=== PATIENT | female | born 1995 | race African-American/Black ===

== ENCOUNTER 2020-08-02 13:10 | Inpatient (IN) | payer OTHER ==
--- NOTE | 2020-08-02 16:41 | HP ---
Admitting History and Physical - Primary Care Physician PCP: Elmo NR - Admission Chief Complaint: sent for NST/BPP History of Present Illness: Had variable with possible late decel on NST at clinic History Source: Patient - Past Medical History ...: Yes ...: 3 ...Para: 0 - Past Surgical History Past Surgical History: Yes: None Physical Examination Vital Signs: Vital Signs Temperature 97.9 F 08/02/20 13:20 Pulse Rate 85 08/02/20 13:20 Respiratory Rate 18 08/02/20 13:20 Blood Pressure 102/62 08/02/20 13:20 O2 Sat by Pulse Oximetry (%)
[2020-08-02 16:46] VITALS: BMI 28.3
--- NOTE | 2020-08-02 16:48 | HP ---
Past Medical History - Primary Care Physician PCP:: Elmo NR - Admission Chief Complaint: Sent for NST BPP History of Present Illness: had variable and late deceleration on NST in clinic History Source: Patient - Past Medical History Pulmonary: Yes: Asthma ...: 3 ...Para: 0 ...Term: 0 ...: 0 ...Spon : 1 ...Induced : 1 ...Living Children: 0 ... Weeks Gestation by Dates: 39 ...EDC by Sono: 08/07/20 - Past Surgical History Past Surgical History: Yes: None Hx Myomectomy: No Hx Transabdominal Cerclage: No - Alcohol/Substance Use Hx Alcohol Use: No Physical Exam - Maternity Vital Signs: Vital Signs Temperature 97.9 F 08/02/20 13:20 Pulse Rate 85 08/02/20 13:20 Respiratory Rate 18 08/02/20 13:20 Blood Pressure 102/62 08/02/20 13:20 O2 Sat by Pulse Oximetry (%) - Abdominal Exam/OB Fundal Height: 39 Number of Fetuses: Single Presentation: Vertex Contractions: Yes Regularity: Irregular Monitor Mode: External - Vaginal Exam/OB Vaginal Bleeding: No Dilatation (cm): 0 Effacement (%): 0 Amniotic Membrane Status: Intact Presentation: Vertex/Position Station: -2 - Physical Exam Edema: No Hemorrhage Risk Assessment - Risk Factors Medium Risk Factors: Yes: None High Risk Factors: Yes: None Risk Score: 1 Risk Level: Medium Risk Assessment/Plan 25 yo P0020 at 39 weeks with suspicious NST. hx grade 3 placenta, pos GBS BPP 6/8 today (-2 for breathing) EFW 3218 monitor with subtle late/variable consented for IOL plan cervidil
[2020-08-02] MEDS ORDERED: DINOPROSTONE 10 MG VAGINAL SUPPOSITORY VG ONE (16:51)
[2020-08-02] MEDS ORDERED: ELECTROLYTE-148 SOLN 1,000 ML IV SCH (17:00)
[2020-08-02] MEDS ORDERED: ePHEDrine SULFATE 50 MG/1 ML AMPULE ONE (17:21)
[2020-08-02] MEDS ORDERED: morphine SULFATE/PF 0.5 MG/ML (2cc Syringe - QUVA) ONE (17:21)
[2020-08-02] MEDS ORDERED: OXYTOCIN 20 UNITS in 0.9% NS 20 UNIT/1,000 ML INFUS.BAG IV ONE (17:28)
--- NOTE | 2020-08-02 17:30 | PN ---
Progress Note (short form) - Note Progress Note: Prolonged spontaneous deceleration to 70 x four minutes Pt repositioned left lateral and give O2 by face mask. returned to baseline 150 with acceleration Was admitted for IOL due to suspicious NST Plan delivery for category 2 tracing and remote from delivery anesthesiologist and neonatology notified.
[2020-08-02] MEDS ORDERED: IBUPROFEN 600 MG TABLET (FP) PO PRN ×2 (17:34→18:52)
[2020-08-02] MEDS ORDERED: ONDANSETRON 4 MG/2 ML VIAL IVPUSH PRN (17:34)
[2020-08-02 17:37] LABS: BASO % 0.4 % (0-2.0); EOS % 1.1 % (0-4.5); HEMATOCRIT 36.1 % (32.4-45.2); HEMOGLOBIN 12.4 GM/dL (10.7-15.3); LYMPH % 20.7 % (8-40); MCH 30.3 pg (25.7-33.7); MCHC 34.4 g/dl (32.0-36.0); MEAN CELL VOLUME 88.1 fl (80-96); MEAN PLT VOLUME 9.2 fl (7.5-11.1); MONO % 9.3 % (3.8-10.2); NEUT % 68.5 % (42.8-82.8); PLATELET COUNT 177 K/MM3 (134-434); RDW 14.4 % (11.6-15.6)
[2020-08-02 17:45] LABS: INR 0.96 (0.83-1.09); PROTHROMBIN TIME (PATIENT) 11.3 SEC (9.7-13.0)
[2020-08-02 17:48] LABS: ACTIVATED PTT 29.2 SECONDS (25.2-36.5)
[2020-08-02 17:59] LABS: BLOOD UREA NITROGEN 5.7 mg/dL (7-18); CALCIUM 9.4 mg/dL (8.5-10.1); CREATININE 0.7 mg/dL (0.55-1.3); POTASSIUM 4.1 mmol/L (3.5-5.1)
--- NOTE | 2020-08-02 18:47 | PN ---
Progress Note (short form) - Note Progress Note: I assisted Dr. ALBA at c/section for the entirety of the case.
--- NOTE | 2020-08-02 18:49 | OP ---
Operative Note - Note: Operative Date: 08/02/20 Pre-Operative Diagnosis: 39 weeks, category 2 tracing, remote from delivery Operation: primary Findings: female apg 8-9 Post-Operative Diagnosis: Same as Pre-op Surgeon: Mireille Douglas Procurement Internship: Ryan Tabor Anesthesiologist/PATIENT SCHEDULER: Maurilio Elam Anesthesia: Spinal Specimens Removed: placenta, cord gas Estimated Blood Loss (mls): 500 Operative Report Dictated: Yes
[2020-08-02] MEDS ORDERED: oxyCODONE HCL 5 MG TABLET PO PRN (18:52)
[2020-08-02] MEDS ORDERED: METHYLERGONOVINE MALEATE 0.2 MG/1 ML AMP IM PRN (18:52)
[2020-08-02 18:55] LABS: CORD HCO3 22.4 mmHg (20-29); CORD pH 7.22 (7.14-7.44)
[2020-08-02] MEDS ORDERED: OXYTOCIN 20 UNITS in 0.9% NS 20 UNIT/1,000 ML INFUS.BAG IV SCH (19:00)
[2020-08-02] MEDS: IBUPROFEN 800 MG/8 ML IJ IVPB PRN (23:46)
[2020-08-03] MEDS: IBUPROFEN 800 MG/8 ML IJ IVPB PRN (08:14)
--- NOTE | 2020-08-03 08:43 | PN ---
Progress Note (short form) - Note Progress Note: 25F POD1 s/p c section with spinal anesthetic including intrathecal duramorph doing well. Pt says that pain is well controlled and reports no anesthetic complications. Continue current regimen.
[2020-08-03 09:01] LABS: BASO % 0.3 % (0-2.0); EOS % 0.5 % (0-4.5); HEMATOCRIT 35.1 % (32.4-45.2); HEMOGLOBIN 11.8 GM/dL (10.7-15.3); LYMPH % 12.5 % (8-40); MCH 29.7 pg (25.7-33.7); MCHC 33.6 g/dl (32.0-36.0); MEAN CELL VOLUME 88.5 fl (80-96); MEAN PLT VOLUME 9.5 fl (7.5-11.1); MONO % 8.8 % (3.8-10.2); NEUT % 77.9 % (42.8-82.8); PLATELET COUNT 154 K/MM3 (134-434); RBC 3.97 M/mm3 (3.60-5.2); RDW 14.1 % (11.6-15.6); WHITE BLOOD COUNT 11.4 K/mm3 (4.0-10.0)
[2020-08-03] MEDS ORDERED: diphenhydrAMINE HCL 25 MG CAPSULE (FP) PO PRN (09:53)
--- NOTE | 2020-08-03 11:44 | PN ---
Progress Note (short form) - Note Progress Note: 25 yo S/P section yesterday. pt complaining of itching throughout her body. moderate lochia abdomen soft + BS bandages dry no calf tenderness breasts soft afebrile plan benadryl 50 mg IVP regular diet.
[2020-08-03] MEDS: methylPREDNISolone NA SUCC 125 MG/2 ML VIAL IVPUSH SCH (13:40)
[2020-08-03] MEDS ORDERED: BISACODYL 10 MG SUPP.RECT RC PRN (18:53)
[2020-08-03] MEDS: ACETAMINOPHEN 325 MG TABLET (FP) PO PRN (20:39)
[2020-08-03] MEDS: SIMETHICONE 80 MG TAB.CHEW (FP) PO PRN (20:39)
[2020-08-03] MEDS: oxyCODONE HCL 5 MG TABLET PO PRN (22:25)
[2020-08-03] MEDS: DOCUSATE SODIUM 100 MG CAPSULE (FP) PO SCH (22:26)
[2020-08-04] MEDS: SIMETHICONE 80 MG TAB.CHEW (FP) PO PRN ×2 (06:36→10:23)
[2020-08-04] MEDS: ACETAMINOPHEN 325 MG TABLET (FP) PO PRN ×2 (06:36→10:23)
[2020-08-04] MEDS: oxyCODONE HCL 5 MG TABLET PO PRN (06:38)
[2020-08-04] MEDS: DOCUSATE SODIUM 100 MG CAPSULE (FP) PO SCH (10:23)
[2020-08-04 11:45] VITALS: BP 106/71; PULSE 76; TEMP 97.8
[2020-08-04] MEDS: methylPREDNISolone NA SUCC 125 MG/2 ML VIAL IVPUSH SCH (12:44)
--- NOTE | 2020-08-04 12:56 | DS ---
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 Vital Signs: Vital Signs Temperature 97.8 F 08/04/20 10:00 Pulse Rate 76 08/04/20 10:00 Respiratory Rate 18 08/04/20 10:00 Blood Pressure 106/71 08/04/20 10:00 O2 Sat by Pulse Oximetry (%) 97 08/03/20 18:00 Constitutional: Yes: No Distress, Calm Cardiovascular: Yes: Regular Rate and Rhythm Respiratory: Yes: Regular, CTA Bilaterally Gastrointestinal: Yes: Normal Bowel Sounds, Soft Renal/: Yes: WNL Pelvis: Yes: WNL External Genitalia: Yes: Normal ....Post : Yes: Uterus firm, Uterus non-tender Breast(s): Yes: WNL Musculoskeletal: Yes: WNL Extremities: Yes: WNL Edema: No Wound/Incision: Yes: Clean/Dry, Well Approximated, Sutures Intact, Steri Strips, Open to air Neurological: Yes: Alert, Oriented Psychiatric: Yes: Alert, Oriented Labs: CBC, BMP 08/03/20 07:55 08/02/20 15:47 Delivery - Delivery Section: Primary Type of Anesthesia: Spinal Episiotomy/Laceration: None EBL (cc): 500 Delivery, Single - Stages of Labor Date of Delivery: 08/02/20 Time of Delivery: 17:58 Time Placenta Delivered: 17:59 - Condition of Infant Clutch Specialist/Pad Assembler Present: Yes Name: Manolo Rai Gender: Female Weight: 3.062 kg Position: Left, OA Total Hours ROM (Hrs/Mins): 0hrs 3min - 1 Minute Total Score: 8 5 Minutes Total Score: 9 - Feeding Plan Initial Plan: Exclusive throughout hospitalization Discharge Summary Problems reviewed: Yes Reason For Visit: LABOR ADMISSION Procedures: Principal: primary C/S Hospital Course: uneventful Plan of Treatment: discharge home, continue vitamins, motrin PRN, preeclampsia and PPH precautions discussed, f/u with OB in 1 week for wound check, pelvic rest x 6 weeks Condition: Good - Instructions - Home Medications Comprehensive Discharge Medication List: Ambulatory Orders Albuterol Sulfate Inhaler - [Ventolin Hfa Inhaler -] 1 - 2 inh PO QID PRN 08/02/20 Vitamins (Sjr) - 1 tab PO DAILY 08/02/20
--- NOTE | 2020-08-04 21:11 | PATH ---
Surgical Pathology Report Patient Name: DIONNA ROSALES Med. Rec. #: [id number] /Age/Gender: 1995 (Age: 25) / F Account: [id number] Location: [facility] OBS/SHAREPOINT DEVELOPER Taken: 08/02/2020 Received: 08/03/2020 Reported: 08/04/2020 Physicians: Mireille Escobar M.D. Specimen(s) Received PLACENTA Clinical History Final Diagnosis PLACENTA, SECTION: 494 G THIRD TRIMESTER PLACENTA WITH TRIVASCULAR UMBILICAL CORD AND UNREMARKABLE PLACENTAL MEMBRANES. Electronically Signed Doris Jones M.D. Gross Description The specimen is received fresh labeled placenta and is a 494 gram, 20 x 15 x 1.5 cm. placenta with attached membranes and umbilical cord. The attached membranes are sanchez, opaque, and insert marginally. The umbilical cord measures 7 cm. in length and averages 1.2 cm. in diameter. The cord inserts centrally. No true knots or strictures are identified. Cut surface of the umbilical cord reveals 3 vessels. The surface is more-blue with minimal fibrin deposition and appropriate caliber vessels. The maternal surface is red-brown with focal defects. Sectioning reveals red-brown, spongy parenchyma. No lesions are identified. Roving Inspector sections are submitted in three cassettes as follows: 1- membrane rolls and umbilical cord; 2-3- full thickness sections of placenta. MLSZ/08/03/2020 sanml/08/03/2020
--- NOTE | 2020-08-09 12:39 | OP ---
DATE OF OPERATION: 08/02/2020 ATTENDING SURGEON: Mireille Escobar MD PREOPERATIVE DIAGNOSIS: Gestation 39 weeks, category 2 tracing and remote from delivery. POSTOPERATIVE DIAGNOSIS: Gestation 39 weeks, category 2 tracing and remote from delivery. SURGERY: Primary section. FINDINGS: Female infant, 's 8 and 9. VICE PRESIDENT FOR INSTRUCTION: Ryan Tabor MD ANESTHESIOLOGIST: Maurilio Elam MD ANESTHESIA: Spinal. SPECIMENS REMOVED: Placenta and cord gas. ESTIMATED BLOOD LOSS: 500 mL PROCEDURE: Patient was taken to the operating room and administered regional anesthesia. She was then positioned, prepped and draped in usual manner for a section. An incision was made just below the symphysis pubis about 8 cm in length. The incision was carried down to the fascia and the fascia nicked in the midline. Fascial incision was extended laterally to each side. The rectus muscle was then in the middle and the bladder flap was created. The uterus was entered at the lower uterine segment, the incision extended laterally to each side. The was delivered. The cord was doubly clamped and cut and the handed to the boss miner standing by. The placenta was then manually delivered and the uterus cleaned with dry lap pads. The uterus was closed in 2 layers with 0 Biosyn interlocking suture with good hemostasis. The abdomen was cleaned of blood and clot and the peritoneum was closed with 2-0 chromic. The fascia was reapproximated with No. 1 Vicryl and the skin was reapproximated with 3-0 Vicryl in a subcutaneous fashion. The patient tolerated the procedure well and was taken to the recovery room in satisfactory condition. MIREILLE ESCOBAR MD CR/[id number]
== END 2020-08-04 15:07 | disposition home or self-care (01) | DRG 540 ==
LOC: JDEL 13:10 → JLDR 15:35 → J3W 20:05
PROVIDERS: ADMIT Obstetrics & Gynecology; ATTEND Obstetrics & Gynecology
PROC: 10D00Z1 Extraction of Products of Conception, Low, Open Approach (ICD-10-PCS; principal; 2020-08-02)
PROC: 3E0P7VZ Introduction of Hormone into Female Reproductive, Via Natural or Artificial Opening (ICD-10-PCS; 2020-08-02)
DX: O76 Abnormality in fetal heart rate and rhythm complicating labor and delivery (principal); O99.824 Streptococcus B carrier state complicating childbirth; Z3A.39 39 weeks gestation of pregnancy; Z37.0 Single live birth; O77.0 Labor and delivery complicated by meconium in amniotic fluid; O99.02 Anemia complicating childbirth; D57.3 Sickle-cell trait; O99.513 Diseases of the respiratory system complicating pregnancy, third trimester; J45.909 Unspecified asthma, uncomplicated; L29.8 Other pruritus; Z86.19 Personal history of other infectious and parasitic diseases; Z88.6 Allergy status to analgesic agent
CPT/HCPCS: 36415; 36600; 59025; 80048; 82803; 85025; 85610; 85730; 86780; 86850; 86900; 86901; 87389; 88307-TC; U0003